=== PATIENT | female | born 1995 | race Caucasian/White ===

== ENCOUNTER 2017-12-07 15:44 | Emergency (ER) | payer BC ==
[2017-12-07] MEDS ORDERED: Lidocaine 1% w/Epinephrine 1:100K 20 ML VIAL ONE (16:02)
[2017-12-07] MEDS ORDERED: Adacel (T-DAP) 0.5 ML VIAL ONE (16:22)
[2017-12-07] MEDS ORDERED: Bacitracin Zinc 1 Packet ONE (16:22)
== END 2017-12-07 16:36 | disposition home or self-care (01) ==
LOC: SCSER 15:44
DX: S61.412A Laceration without foreign body of left hand, initial encounter (principal); J45.909 Unspecified asthma, uncomplicated; Z79.899 Other long term (current) drug therapy; W26.9XXA Contact with unspecified sharp object(s), initial encounter
CPT/HCPCS: 12002; 90471; 90715; J2001